=== PATIENT | male | born 2000 | race Two or more races ===

== ENCOUNTER → 2025-01-15 | Outpatient (CLI) | payer OTHER ==
[~2025-01-15] MED LIST: ADDE20CA3 PO
[2025-01-15 10:35] LABS: HEMATOCRIT 46.3 % (42.0-52.0); HEMOGLOBIN 15.2 g/dl (13.5-17.5); MEAN CORPUSCULAR HEMOGLOBIN 31.3 pg (27.0-33.0); MEAN CORPUSCULAR HGB CONC 32.8 g/dl (32.0-36.5); MEAN CORPUSCULAR VOLUME 95.3 fl (80.0-96.0); PLATELET COUNT, AUTOMATED 251 10^3/uL (150-450); RED BLOOD COUNT 4.86 10^6/uL (4.30-6.10); WHITE BLOOD COUNT 6.3 10^3/uL (4.0-10.0)
[2025-01-15 11:04] LABS: BLOOD UREA NITROGEN 13 MG/DL (9-23); CALCIUM LEVEL 9.7 MG/DL (8.5-10.1); CARBON DIOXIDE LEVEL 29 MMOL/L (20-31); CHLORIDE LEVEL 107 MMOL/L (98-107); CREATININE FOR GFR 1.26 MG/DL (0.70-1.30); GLOMERULAR FILTRATION RATE > 60.0 (>60); GLUCOSE, FASTING 84 MG/DL (60-100); POTASSIUM SERUM 4.7 MMOL/L (3.5-5.1); SODIUM LEVEL 144 MMOL/L (136-145)
== END ==
LOC: M PLALAB 08:36
PROVIDERS: ATTEND Nurse Practitioner Family
DX: Z01.818 Encounter for other preprocedural examination (principal)

== ENCOUNTER 2025-01-17 08:05 | Day surgery (SDC) | payer OTHER ==
[~2025-01-17] VITALS: Ht 188 cm; Wt 87.9 kg
[~2025-01-17 08:05] MED LIST changes: +LIDOCAINE 2% 100MG/5ML SDV (FOR ANES.) As Ordered ONE; +MIDAZOLAM INJ 2MG/2ML VIAL As Ordered ONE; +ONDANSETRON 4MG 2ML VIAL As Ordered ONE; +fentaNYL 100 MCG/2 ML INJECTION As Ordered ONE; +propofoL 200 MG/20 ML VIAL As Ordered ONE
[2025-01-17] MEDS ORDERED: dexmedeTOMIDine (4MCG/ML)200MCG/50ML BTL (PRECEDEX) As Ordered ONE (08:19)
[2025-01-17] MEDS ORDERED: LR 1,000 ML IV SCH (08:40)
[2025-01-17] MEDS: ceFAZolin SOD 2 GM in IV 1 EA IV ONE (09:45)
[2025-01-17] MEDS ORDERED: ACETAMINOPHEN 1000MG/100ML IV BAG As Ordered ONE (09:51)
[2025-01-17] MEDS: BACITRACIN OINTMENT 30GM TUBE As Ordered ONE (10:45)
[2025-01-17] MEDS ORDERED: OXYC1TAB23 PO (11:16)
[2025-01-17 11:45] VITALS: TEMP 97.8
[2025-01-17] MEDS: PERCOCET 5MG/325MG TAB PO PRN (12:00)
[2025-01-17 13:45] VITALS: BP 166/73; O2SAT 100
== END 2025-01-17 12:36 | disposition home or self-care (01) ==
LOC: M SDC 08:05
PROVIDERS: ATTEND Urology
DX: N47.1 Phimosis (principal); F90.9 Attention-deficit hyperactivity disorder, unspecified type; Z79.899 Other long term (current) drug therapy
CPT/HCPCS: 54161; 88304; J0131; J0690; J1100; J2250; J2405; J3010